=== PATIENT | male | born 1970 | race Caucasian/White ===

== ENCOUNTER 2021-11-04 07:02 | Emergency (ER) | payer SELFPAY ==
[~2021-11-04] VITALS: Ht 182 cm; Wt 100.0 kg
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
[2021-11-04 07:18] LABS: BASOPHILS % (AUTO) 1 % (0-10); EOSINOPHILS # (AUTO) 0.2 10^3/uL (0.0-0.3); EOSINOPHILS % (AUTO) 3 % (0-10); HEMATOCRIT 45 % (40-54); HEMOGLOBIN 15.9 g/dL (13.3-17.7); LYMPHOCYTES # (AUTO) 1.6 10^3/uL (1.0-4.0); LYMPHOCYTES % (AUTO) 33 % (12-44); MEAN CORPUSCULAR HEMOGLOBIN 33 pg (25-34); MEAN CORPUSCULAR HGB CONC 35 g/dL (32-36); MEAN CORPUSCULAR VOLUME 95 fL (80-99); MEAN PLATELET VOLUME 8.7 fL (9.0-12.2); MONOCYTES # (AUTO) 0.6 10^3/uL (0.0-1.0); MONOCYTES % (AUTO) 12 % (0-12); NEUTROPHILS # (AUTO) 2.5 10^3/uL (1.8-7.8); NEUTROPHILS % (AUTO) 51 % (42-75); PLATELET COUNT 217 10^3/uL (130-400); WHITE BLOOD COUNT 4.9 10^3/uL (4.3-11.0)
[2021-11-04 07:30] LABS: INR 0.9 (0.8-1.4); PROTHROMBIN TIME PATIENT 12.6 SEC (12.2-14.7)
--- NOTE | 2021-11-04 07:30 | Diagnostic Imaging Report ---
INDICATION: Chest pain EXAMINATION: Chest 11/04/2021 FINDINGS: The cardiomediastinal silhouette is unremarkable. The pulmonary vasculature is within normal limits. The lungs and pleural spaces are clear. IMPRESSION: No evidence of an acute cardiopulmonary process. Dictated by: Dictated on workstation # [id number]
[2021-11-04 07:34] LABS: BILIRUBIN,URINE NEGATIVE (NEGATIVE); CLARITY,URINE CLEAR; GLUCOSE, URINE (UA) NEGATIVE (NEGATIVE); KETONES,URINE NEGATIVE (NEGATIVE); LEUKOCYTE ESTERASE ,URINE NEGATIVE (NEGATIVE); NITRITE,URINE NEGATIVE (NEGATIVE); PROTEIN,URINE NEGATIVE (NEGATIVE)
[2021-11-04 07:41] LABS: BACTERIA,URINE NEGATIVE /HPF; COLOR,URINE PALE YELLOW; SQUAMOUS EPITHELIAL CELL,UR 0-2 /HPF; WBC,URINE 0-2 /HPF
[2021-11-04] MEDS ORDERED: LABETALOL HCL 20 MG/4 ML VIAL IV ONE (07:45)
[2021-11-04 07:49] LABS: CREATININE SERUM 1.36 MG/DL (0.60-1.30); POTASSIUM 3.4 MMOL/L (3.6-5.0)
[2021-11-04 07:50] LABS: BILIRUBIN,TOTAL 0.4 MG/DL (0.1-1.0); CALCIUM 9.5 MG/DL (8.5-10.1); MAGNESIUM 2.5 MG/DL (1.6-2.4); TOTAL PROTEIN 7.9 GM/DL (6.4-8.2)
[2021-11-04 07:51] LABS: ALBUMIN 4.2 GM/DL (3.2-4.5)
[2021-11-04] MEDS ORDERED: NS IV 1000 ML 1,000 ML IV STA (07:59)
[2021-11-04] MEDS ORDERED: lisINopril 10 MG (PRINIVIL) TABLET PO ONE (09:15)
[2021-11-04 09:52] LABS: SODIUM 138 MMOL/L (135-145)
[2021-11-04 09:53] LABS: BUN/CREATININE RATIO 5; CALCIUM 8.4 MG/DL (8.5-10.1); CARBON DIOXIDE 24 MMOL/L (21-32); CHLORIDE 104 MMOL/L (98-107); CREATININE SERUM 1.23 MG/DL (0.60-1.30); GFR ESTIMATED 72; GLUCOSE 106 MG/DL (70-105)
[2021-11-04] MEDS ORDERED: LISI10TA25 PO (10:01)
== END 2021-11-04 10:10 | disposition home or self-care (01) ==
LOC: ER FS 07:05
DX: E86.0 Dehydration (principal); R03.0 Elevated blood-pressure reading, without diagnosis of hypertension; R07.89 Other chest pain; Z28.310 Unvaccinated for COVID-19
CPT/HCPCS: 36415; 71045; 80048; 80053; 81000; 82947; 83735; 83874; 83880; 84484; 85025; 85610; 85730; 93005; 93041

== ENCOUNTER 2022-06-18 02:13 | Emergency (ER) | payer SELFPAY ==
[~2022-06-18] VITALS: Ht 177.8 cm; Wt 100.0 kg
[~2022-06-18 02:13] MED LIST: LISI10TA25 PO
[2022-06-18] MEDS ORDERED: SODIUM BICARB 8.4% 50 MEQ/50 ML (ABBOTT) SYR INJ ONE (02:16)
[2022-06-18] MEDS ORDERED: AMIODARONE 150 MG/3 ML (CORDARONE) VIAL IV ONE (02:16)
[2022-06-18] MEDS ORDERED: ATROPINE INJECTION 1 MG/10 ML SYR (ABBOTT) INJ ONE (02:16)
[2022-06-18] MEDS ORDERED: EPINEPHrine 0.1 MG/ML 10 ML (HOSPIRA) SYR IJ ONE (02:16)
[2022-06-18] MEDS ORDERED: TENECTEPLASE 50 MG VIAL IV ONE (02:30)
[2022-06-18 02:37] LABS: HEMATOCRIT 43 % (40-54); HEMOGLOBIN 14.4 g/dL (13.3-17.7); MEAN CORPUSCULAR HEMOGLOBIN 34 pg (25-34); MEAN CORPUSCULAR VOLUME 101 fL (80-99); WHITE BLOOD COUNT 6.6 10^3/uL (4.3-11.0)
[2022-06-18 02:38] LABS: BASOPHILS % (AUTO) 1 % (0-10); EOSINOPHILS # (AUTO) 0.3 10^3/uL (0.0-0.3); EOSINOPHILS % (AUTO) 4 % (0-10); LYMPHOCYTES # (AUTO) 2.7 X 10^3 (1.0-4.0); LYMPHOCYTES % (AUTO) 40 % (12-44); MEAN CORPUSCULAR HGB CONC 34 g/dL (32-36); MEAN PLATELET VOLUME 9.6 fL (9.0-12.2); MONOCYTES # (AUTO) 0.5 X 10^3 (0.0-1.0); MONOCYTES % (AUTO) 8 % (0-12); NEUTROPHILS # (AUTO) 3.2 X 10^3 (1.8-7.8); NEUTROPHILS % (AUTO) 47 % (42-75); PLATELET COUNT 155 10^3/uL (130-400)
[2022-06-18] MEDS ORDERED: ONDANSETRON 4 MG/2 ML (SDV) Z0FRAN ONE (02:39)
[2022-06-18] MEDS ORDERED: ONDANSETRON 4 MG/2 ML (SDV) Z0FRAN IVP ONE (02:45)
[2022-06-18] MEDS ORDERED: ATROPINE INJECTION 1 MG/1 ML SDV IJ ONE (02:45)
[2022-06-18 02:48] LABS: INR 0.9 (0.8-1.4); PROTHROMBIN TIME PATIENT 13.1 SEC (12.2-14.7)
--- NOTE | 2022-06-18 02:58 | ED General ---
General Stated Complaint: L ARM NUMB/LEGS WEAK Source of Information: Patient, EMS Exam Limitations: Other (Clinical condition) History of Present Illness Date Seen by Provider: Jun 18, 2022 Time Seen by Provider: 02:14 Initial Comments Patient is a 51-year-old male former with history of hypertension and last known normal 1 hour prior to ED arrival who presents with acute respiratory failure with hypoxia and left arm motor weakness waking him from sleep. Patient reportedly had been part of with family members just prior to going to bed. He awoke acutely short of breath with inability to move his left arm. EMS was dispatched and the patient's O2 saturation was in the upper 70s on upon their arrival. Patient noted be bradycardic with pulse in the 30s to 40s and diaphoretic with confusion and inability to move left arm. The patient is a smoker and reportedly visiting with family member prior to bedtime. Prehospital EKG shows sinus bradycardia with biphasic T waves in anterior lateral leads with bradycardia. Patient is bradycardic and hypotensive on ED arrival 73/44 with bradycardia and ischemic changes on EKG. Patient brought directly to CT scan for imaging for stroke evaluation. Timing/Duration: Other Severity: Severe Modifying Factors: improves with Other Associated Systoms: Other Allergies and Home Medications Allergies Coded Allergies: aspirin (Verified Allergy, Severe, 11/04/21) Patient Home Medication List Home Medication List Reviewed: Yes Lisinopril (Lisinopril) 10 Mg Tablet, 10 MG PO DAILY Prescribed by: ROMAN TONG on 11/04/21 1001 Review of Systems Review of Systems Constitutional: see HPI EENTM: see HPI Respiratory: see HPI Cardiovascular: see HPI Gastrointestinal: see HPI Genitourinary: see HPI Musculoskeletal: see HPI Skin: see HPI Psychiatric/Neurological: See HPI Hematologic/Lymphatic: See HPI Immunological/Allergic: see HPI All Other Systems Reviewed Negative Unless Noted: No Past Ygufpgo-Rjoxug-Jskliz Hx Patient Social History Tobacco type used: Cigarettes Smoking Status: Current Everyday Smoker Substance type: Marijuana Substance frequency: Couple times a week Alcohol Use?: Yes Alcohol type: Hard Liquor Alcohol Frequency: Daily Physical Exam Vital Signs Vital Signs - First Documented 06/18/22 06/18/22 02:13 02:51 Temp 35.0 Pulse 40 B/P (MAP) 68/51 Capillary Refill : Height, Weight, BMI Height: '" Weight: lbs. oz. kg; 30.00 BMI Method: General Appearance: Anxious, Other (Diaphoretic, pale, thready pulses with inability to move left arm) Eyes: Bilateral Eye Normal Inspection, Bilateral Eye PERRL, Bilateral Eye EOMI HEENT: PERRL/EOMI, Normal ENT Inspection, Pharynx Normal, Moist Mucous Membranes Neck: Normal Inspection Respiratory: Rales, Wheezing Cardiovascular: Bradycardia Gastrointestinal: Non Tender, Soft Extremity: Other (Decreased cap refill) Neurologic/Psychiatric: Alert, Oriented x3, Motor Weakness (Flaccid paralysis of left arm, NIH stroke score of) Skin: Other (Diaphragm) Focused Exam Sepsis Stage: Ruled Out Progress/Results/Core Measures Suspected Sepsis SIRS Temperature: Pulse: 40 Respiratory Rate: Laboratory Tests 06/18/22 02:20: White Blood Count 6.6 Blood Pressure 68 /51 Mean: 57 Laboratory Tests 06/18/22 02:20: Creatinine 1.58H, INR Comment 0.9, Platelet Count 155, Total Bilirubin 0.4 Results/Orders Lab Results Laboratory Tests Test 06/18/22 02:20 Range/Units White Blood Count 6.6 4.3-11.0 10^3/uL Red Blood Count 4.23 L 4.30-5.52 10^6/uL Hemoglobin 14.4 13.3-17.7 g/dL Hematocrit 43 40-54 % Mean Corpuscular Volume 101 H 80-99 fL Mean Corpuscular Hemoglobin 34 25-34 pg Mean Corpuscular Hemoglobin Concent 34 32-36 g/dL Red Cell Distribution Width 13.5 10.0-14.5 % Platelet Count 155 130-400 10^3/uL Mean Platelet Volume 9.6 9.0-12.2 fL Neutrophils (%) (Auto) 47 42-75 % Lymphocytes (%) (Auto) 40 12-44 % Monocytes (%) (Auto) 8 0-12 % Eosinophils (%) (Auto) 4 0-10 % Basophils (%) (Auto) 1 0-10 % Neutrophils # (Auto) 3.2 1.8-7.8 X 10^3 Lymphocytes # (Auto) 2.7 1.0-4.0 X 10^3 Monocytes # (Auto) 0.5 0.0-1.0 X 10^3 Eosinophils # (Auto) 0.3 0.0-0.3 10^3/uL Basophils # (Auto) 0.0 0.0-0.1 10^3/uL Prothrombin Time 13.1 12.2-14.7 SEC INR Comment 0.9 0.8-1.4 Activated Partial Thromboplast Time 32 24-35 SEC Sodium Level 140 135-145 MMOL/L Potassium Level 3.4 L 3.6-5.0 MMOL/L Chloride Level 103 98-107 MMOL/L Carbon Dioxide Level 23 21-32 MMOL/L Anion Gap 14 5-14 MMOL/L Blood Urea Nitrogen 7 7-18 MG/DL Creatinine 1.58 H 0.60-1.30 MG/DL Estimat Glomerular Filtration Rate 53 BUN/Creatinine Ratio 4 Glucose Level 140 H 70-105 MG/DL Calcium Level 8.7 8.5-10.1 MG/DL Corrected Calcium 9.3 8.5-10.1 MG/DL Magnesium Level 2.0 1.6-2.4 MG/DL Total Bilirubin 0.4 0.1-1.0 MG/DL Aspartate Amino Transf (AST/SGOT) 16 5-34 U/L Alanine Aminotransferase (ALT/SGPT) 11 0-55 U/L Alkaline Phosphatase 103 40-136 U/L Troponin I < 0.30 <0.30 NG/ML Pro-B-Type Natriuretic Peptide 4355.0 H <125.0 PG/ML Total Protein 6.8 6.4-8.2 GM/DL Albumin 3.2 3.2-4.5 GM/DL Serum Alcohol < 10 <10 MG/DL My Orders Orders - SKYLA GREWAL DO Ct Head Wo-R/O Stroke (06/18/22 02:15) Cbc With Automated Diff (06/18/22 02:16) Comprehensive Metabolic Panel (06/18/22 02:16) Protime With Inr (06/18/22 02:16) Partial Thromboplastin Time (06/18/22 02:16) Ekg Tracing (06/18/22 02:16) Chest 1 View Ap/Pa Only (06/18/22 02:16) Troponin I Fs (06/18/22 02:16) Magnesium (06/18/22 02:16) Ct Angio Head/Neck (06/18/22 02:16) Tenecteplase (Tnkase) (06/18/22 02:30) Post Thrombolytic Adminstratio (06/18/22 02:18) Probnp Fs (06/18/22 02:29) Alcohol (06/18/22 02:29) Drug Screen Stat (Urine) (06/18/22 02:29) Atropine Injection (Atropine Injection) (06/18/22 02:45) Ondansetron Injection (Zofran Injectio (06/18/22 02:45) Thyroid Stimulating Hormone (06/18/22 02:20) Ondansetron Injection (Zofran Injectio (06/18/22 02:39) Ns Iv 1000 Ml (Sodium Chloride 0.9%) (06/18/22 03:00) Dopamine Drip (Dopamine Drip) (06/18/22 03:00) Dopamine Drip (Dopamine Drip) (06/18/22 02:59) Ns Iv 1000 Ml (Sodium Chloride 0.9%) (06/18/22 02:59) Medications Given in ED Current Medications Medications Dose Ordered Sig/Mack Route Start Time Stop Time Status Last Admin Dose Admin Ondansetron HCl 4 mg ONCE ONCE IVP 06/18/22 02:45 06/18/22 02:46 DC 06/18/22 02:40 4 MG Tenecteplase 25 mg ONCE ONCE IV 06/18/22 02:30 06/18/22 02:31 DC 06/18/22 02:51 25 MG Vital Signs/I&O 06/18/22 06/18/22 06/18/22 06/18/22 02:13 02:51 03:04 03:11 Temp 35.0 Pulse 40 42 88 B/P (MAP) 68/51 91/55 51/42 Capillary Refill : Blood Pressure Mean: 57 Departure Communication (Admissions) EKG: Sinus bradycardia, rate 42, LVH, biphasic T waves in leads V1 through 6 prolonged, T wave inversions V1-V2. CT head without contrast: No acute intracranial bleed with limited evaluation due to motion artifact per radiology report Patient maintains airway with O2 saturation 100% on nonrebreather. Patient bradycardic and hypotensive with biphasic T waves. IV established and 0.5 atropine and fluid bolus given. Dopamine drip ordered. CT report negative for acute bleed. Stroke dose tenecteplase given. Chest x-ray consistent with cardiomegaly with pulmonary vascular congestion. IV Lasix given. Patient remains hypotensive, hypoxic and bradycardic despite therapies. [facility] neuro ICU staff and cardiology team contacted for transferred EMS air crew dispatched for emergent transfer. Patient then complained of chest pain with accompanying cardiac arrest. Chest compressions immediately started, and epinephrine given. Patient intubated and aggressive ACLS protocols followed. Multiple doses of epinephrine, bicarb given with multiple rounds of chest compressions without return of spontaneous circulation. Patient did have PEA on multiple pulse checks in 1 episode of pulseless V. tach. Bicarb and amiodarone given. After greater than 40 minutes of ACLS without return of circulation, a bedside ultrasound was performed to confirm asystole. The patient's family members were updated throughout the resuscitation process with some present in the room. The patient was pronounced at 0406 a.m. supervisor record press and remaining family members notified family members updated and notified of patient's . Impression Primary Impression: Cardiogenic shock Additional Impressions: CVA (cerebral vascular accident) Cardiac arrest Disposition: 20 Condition: Transfer Transfer Reason: Exceeds level of care Method of Transfer: Air Departure-Patient Inst. Referrals: NO,LOCAL PHYSICIAN (PCP/Family) Primary Care Physician SKYLA GREWAL DO Jun 18, 2022 02:58
[2022-06-18] MEDS ORDERED: DOPamine DRIP 250 ML IV ONE (02:59)
[2022-06-18] MEDS ORDERED: NS IV 1000 ML 1,000 ML ONE (02:59)
[2022-06-18] MEDS ORDERED: DOPamine DRIP 250 ML IV SCH (03:00)
[2022-06-18] MEDS ORDERED: NS IV 1000 ML 1,000 ML IV SCH (03:00)
[2022-06-18 03:02] LABS: POTASSIUM 3.4 MMOL/L (3.6-5.0); SODIUM 140 MMOL/L (135-145)
[2022-06-18 03:03] LABS: ALANINE AMINOTRANSFERASE 11 U/L (0-55); ALBUMIN 3.2 GM/DL (3.2-4.5); ALKALINE PHOSPHATASE 103 U/L (40-136); BILIRUBIN,TOTAL 0.4 MG/DL (0.1-1.0); BUN/CREATININE RATIO 4; CALCIUM 8.7 MG/DL (8.5-10.1); CARBON DIOXIDE 23 MMOL/L (21-32); CHLORIDE 103 MMOL/L (98-107); CREATININE SERUM 1.58 MG/DL (0.60-1.30); GFR ESTIMATED 53; GLUCOSE 140 MG/DL (70-105); TOTAL PROTEIN 6.8 GM/DL (6.4-8.2)
[2022-06-18 03:11] VITALS: BP 51/42
--- NOTE | 2022-06-18 06:47 | Diagnostic Imaging Report ---
INDICATION: Stroke. TECHNIQUE: Single view chest 2:38 AM. CORRELATION STUDY: 11/04/2021 FINDINGS: Heart size and mediastinum are prominent compared to prior. Vasculature overall within normal limits. The lungs are clear with no consolidating infiltrate. There is no significant effusion or pneumothorax. IMPRESSION: 1. Heart size and mediastinum are more prominent from prior. May be accentuated by technique. Otherwise negative for acute findings of the chest. Dictated by: Dictated on workstation # [id number]
--- NOTE | 2022-06-18 06:56 | Diagnostic Imaging Report ---
PROCEDURE: CT head wo r/o stroke. TECHNIQUE: Multiple contiguous axial images were obtained through the brain without the use of intravenous contrast. Auto Exposure Controls were utilized during the CT exam to meet ALARA standards for radiation dose reduction. INDICATION: "Stroke". No symptoms, lateralizing inflammation or other useful history provided for exam interpretation. No priors. There is exam limitations owing to motion artifact. There is some relative hypodensity in the left basal ganglia anteriorly as well as superiorly. This may reflect subacute ischemia but may also be chronic as there is a substantial degree of periventricular white matter small vessel disease in this patient. Cerebral cortical volume suggests at least mild element of underlying atrophy. No acute extra-axial fluid collection and there was no hemorrhage. No sulcal effacement or dayanara cortical edema is revealed. There is a right maxillary sinus mucous retention cyst and membrane disease of ethmoid air cells bilaterally anteriorly. No appreciable paranasal sinus air-fluid level. The mastoids clear. IMPRESSION: Some premature chronic appearing periventricular white matter small vessel disease, acuity indeterminate left basal ganglier hypodensities. No hemorrhage identified in this patient with likely mild premature atrophy and exam sensitivity limitations on the basis of motion artifact on this exam ordered for "stroke". Dictated by: Dictated on workstation # [id number]
== END 2022-06-18 07:13 | disposition expired ==
LOC: EDUNIT# 02:13 → ER FS 02:15
DX: I46.9 Cardiac arrest, cause unspecified (principal); R57.0 Cardiogenic shock; I63.9 Cerebral infarction, unspecified; I10 Essential (primary) hypertension; F17.210 Nicotine dependence, cigarettes, uncomplicated
CPT/HCPCS: 31500; 36415; 70450; 71045; 80053; 83735; 83880; 84484; 85025; 85610; 85730; 92977; 93005; 99291; 99292; G0480; 80320